=== PATIENT | female | born 1990 | race Caucasian/White ===

== ENCOUNTER 2023-06-15 16:17 | Day surgery (SDC) | payer SELFPAY ==
[2023-06-15 17:09] VITALS: BMI 30.8
== END 2023-06-15 19:36 | disposition home or self-care (01) ==
LOC: CSHLD/OP 16:17
PROVIDERS: ATTEND Obstetrics & Gynecology
DX: O46.92 Antepartum hemorrhage, unspecified, second trimester (principal); O23.592 Infection of other part of genital tract in pregnancy, second trimester; B96.89 Other specified bacterial agents as the cause of diseases classified elsewhere; Z79.899 Other long term (current) drug therapy; Z88.2 Allergy status to sulfonamides; Z3A.23 23 weeks gestation of pregnancy
CPT/HCPCS: 87480; 87510; 87660; 99284